=== PATIENT | female | born 1970 | race Caucasian/White ===

== ENCOUNTER 2016-09-03 13:06 | Observation (INO) ==
[2016-09-03] MEDS ORDERED: Aspirin 81 MG TAB.CHEW PO ONE (13:30)
[2016-09-03 14:02] LABS: Basophils % 0.2 %; Eosinophils % 0.1 %; Hematocrit 40.2 % (35.3-44.9); Immature Granulocytes % 0.6 % (0-4); Immature Platelets 4.1 % (1.1-6.1); Lymphocytes # 1.2 K/mcL (0.6-4.6); Lymphocytes % 8.3 %; Mean Corpuscular HGB Conc 32.3 g/dL (31.6-35.5); Mean Corpuscular Hemoglobin 29.3 pg (28.0-33.3); Mean Corpuscular Volume 90.5 fL (83.0-100.0); Mean Platelet Volume 9.8 fL (9.4-12.4); Monocytes # 0.4 K/mcL (0.0-1.3); Monocytes % 2.8 %; Neutrophils # 12.5 K/mcL (1.6-8.9); Platelet Count 328 K/mcL (140-400); Red Blood Count 4.44 M/mcL (3.82-4.97)
[2016-09-03 14:06] LABS: Prothrombin Time 10.7 Seconds (9.4-12.1)
[2016-09-03 14:15] LABS: BUN/Creatinine Ratio 17 (6-26); Blood Urea Nitrogen 12 mg/dL (7-20); Calcium 8.9 mg/dL (8.6-10.8); Carbon Dioxide 27 mEq/L (19-29); Chloride 103 mEq/L (98-109); Glucose 107 mg/dL (70-99); Osmolality,Calculated 290 (280-300); Potassium 3.9 mEq/L (3.5-4.5); Sodium 140 mEq/L (136-145); eGFR For African Americans > 60 (> 60); eGFR For Non-African Americans > 60 (> 60)
--- NOTE | 2016-09-03 15:23 | Emergency Department Note ---
Disposition Clinical Impression: Chest pain Qualifiers: Chest pain type: unspecified Qualified Code(s): R07.9 - Chest pain, unspecified Disposition: Admitted As Inpatient Condition: Good Chest Pain HPI - General Chief Complaint: ED Chest Pain Stated Complaint: chest pain Source: patient, EMS Limitations: no limitations Vital Signs Reviewed: Yes Nursing Notes Reviewed: Yes - History of Present Illness HPI Narrative: Patient is here as a [place] [facility] [place] evaluation of chest pain. Patient states that her chest pain is palpitations and pressure that radiates to left arm. Patient states that she has been recently battling bronchitis and has been treated for the last 3 weeks without resolution. Patient's symptoms seem to last for anywhere from 3-7 minutes and resolved with rest. Patient cannot tell if associated shortness of breath is from bronchitis or the chest pain. Chest pain occasionally happens at rest. Patient has no known coronary artery disease. Patient does not smoke. Patient is adopted and does not know family history. Patient is not on estrogen and does not have diabetes. Patient's EKG shows sinus rhythm with a rate of 73. CO interval 177. QRS 84. QTC 394. Patient has no significant ST elevations or depressions however she does have T-wave inversions in V1 and V2. These have not changed in progression from transfer from urgent care. Patient does not have previous EKG for comparison. Severity scale (1-10): 4 - Related Data Allergies Allergy/AdvReac Type Severity Reaction Status Date / Time codeine Allergy Vomiting Verified 09/15/15 20:45 All systems ED: reviewed and negative except as stated. Constitutional: Denies: fever, chills Cardiovascular: Reports: chest pain, palpitations, dyspnea on exertion Respiratory: Reports: cough, dyspnea Gastrointestinal: Denies: abdominal pain, nausea, vomiting Genitourinary: Denies: urgency, dysuria Musculoskeletal: Denies: back pain Integumentary: Denies: rash, abrasion Neurological: Denies: headache Psychiatric: Denies: anxiety Chest Pain PMH - Past Medical History Medical history: Reports: no medical history Surgical history: Reports: non-contributory Psychiatric history: Reports: no psych history - Social History Smoking Status: Never smoker Alcohol use: Reports: none Drug use: Reports: none Physical Exam - General Limitations: no limitations General appearance: alert, in no apparent distress - Head Head exam: atraumatic, normocephalic - Eye Eye exam: Present: normal appearance, PERRL - ENT ENT exam: normal exam, normal oropharynx - Neck Neck exam: Present: normal inspection, full ROM - Chest Chest inspection: Present: normal inspection, symmetric chest wall rise. Absent : tenderness - Respiratory Respiratory exam: Present: normal lung sounds bilaterally. Absent: respiratory distress, wheezes - Cardiovascular Cardiovascular exam: Present: regular rate, normal rhythm - Abdominal Exam Abdominal exam: Present: soft, Non-Tender - Back Exam Back exam: Present: normal inspection - Neurological Exam Neurological exam: Present: alert, oriented X3, CN II-XII intact - Psychiatric Psychiatric exam: Present: normal affect, normal mood - Skin Skin exam: Present: warm, dry Course - Reevaluation(s) Reevaluation #1: Patient's heart score is 5 secondary to highly suspicious chest pain, age, and EKG changes, risk factors, negative troponin. Using shared decision making further treatment of bronchitis versus admission to the hospital help further rule out further cardiac ischemia. Patient would like to stay for further evaluation of her heart.. Aspirin given by EMS prior to arrival. Patient not currently having chest pain. - Consultations Consultation #1: Discussed with Dr. Levi. Patient accepted for admission. Vital Signs Temperature 98.1 F 09/03/16 13:08 Pulse Rate 74 09/03/16 13:08 Respiratory Rate 16 09/03/16 13:08 Blood Pressure 147/89 09/03/16 13:08 O2 Sat by Pulse Oximetry 96 09/03/16 13:08 Temperature 98.1 F 09/03/16 13:08 Pulse Rate 104 09/03/16 16:11 Respiratory Rate 16 09/03/16 16:11 Blood Pressure 136/74 09/03/16 16:11 O2 Sat by Pulse Oximetry 94 L 09/03/16 16:11 Oxygen Delivery Oxygen Delivery Room Air Chest Pain - Lab Data Result diagrams: 09/03/16 13:52 09/03/16 13:52 Lab Results 09/03/16 09/03/16 09/03/16 Range/Units 13:52 13:52 13:52 WBC 14.2 H (4.3-11.1) K/mcL RBC 4.44 (3.82-4.97) M/mcL Hgb 13.0 (11.5-15.4) g/dL Hct 40.2 (35.3-44.9) % MCV 90.5 (83.0-100.0) fL MCH 29.3 (28.0-33.3) pg MCHC 32.3 (31.6-35.5) g/dL RDW 13.0 (11.5-14.5) % Plt Count 328 (140-400) K/mcL MPV 9.8 (9.4-12.4) fL Immature Gran % 0.6 (0-4) % Seg Neutrophils % 88.0 % Lymphocytes % 8.3 % Monocytes % 2.8 % Eosinophils % 0.1 % Basophils % 0.2 % Neutrophils # 12.5 H (1.6-8.9) K/mcL Lymphocytes # 1.2 (0.6-4.6) K/mcL Monocytes # 0.4 (0.0-1.3) K/mcL Eosinophils # 0.0 (0.0-0.6) K/mcL Basophils # 0.0 (0.0-0.2) K/mcL Immature Plt Fraction 4.1 (1.1-6.1) % PT 10.7 (9.4-12.1) Seconds INR 1.0 D-Dimer 253 (0-500) ng/mLFEU Sodium (136-145) mEq/L Potassium (3.5-4.5) mEq/L Chloride (98-109) mEq/L Carbon Dioxide (19-29) mEq/L BUN (7-20) mg/dL Creatinine (0.57-1.11) mg/dL Est GFR ( Amer) (> 60) Est GFR (Non-Af Amer) (> 60) BUN/Creatinine Ratio (6-26) Glucose (70-99) mg/dL Calculated Osmolality (280-300) Calcium (8.6-10.8) mg/dL Troponin I (0-0.03) ng/mL TSH 0.693 (0.350-4.840) mcIU/mL 09/03/16 09/03/16 Range/Units 13:52 13:52 WBC (4.3-11.1) K/mcL RBC (3.82-4.97) M/mcL Hgb (11.5-15.4) g/dL Hct (35.3-44.9) % MCV (83.0-100.0) fL MCH (28.0-33.3) pg MCHC (31.6-35.5) g/dL RDW (11.5-14.5) % Plt Count (140-400) K/mcL MPV (9.4-12.4) fL Immature Gran % (0-4) % Seg Neutrophils % % Lymphocytes % % Monocytes % % Eosinophils % % Basophils % % Neutrophils # (1.6-8.9) K/mcL Lymphocytes # (0.6-4.6) K/mcL Monocytes # (0.0-1.3) K/mcL Eosinophils # (0.0-0.6) K/mcL Basophils # (0.0-0.2) K/mcL Immature Plt Fraction (1.1-6.1) % PT (9.4-12.1) Seconds INR D-Dimer (0-500) ng/mLFEU Sodium 140 (136-145) mEq/L Potassium 3.9 (3.5-4.5) mEq/L Chloride 103 (98-109) mEq/L Carbon Dioxide 27 (19-29) mEq/L BUN 12 (7-20) mg/dL Creatinine 0.69 (0.57-1.11) mg/dL Est GFR ( Amer) > 60 (> 60) Est GFR (Non-Af Amer) > 60 (> 60) BUN/Creatinine Ratio 17 (6-26) Glucose 107 H (70-99) mg/dL Calculated Osmolality 290 (280-300) Calcium 8.9 (8.6-10.8) mg/dL Troponin I 0.00 (0-0.03) ng/mL TSH (0.350-4.840) mcIU/mL Attestation Statement - Attestation Attestation: Patient was seen with resident physician. I reviewed the history, physical, assessment and plan, and agree with the findings. I also personally evaluated this patient and had [id number] time with this patient. 46-year-old female presents to the emergency department with worsening chest pain for the last 48 hours or so. Transferred from urgent care. Patient states that she has been getting palpitations which she has had off and on for approximately one year, but now has developed chest pain as a pressure sensation left-sided chest that radiates to the neck and left arm and down her fingers. She says usually the palpitations last for 5 minutes with the pain lasting 1-2 minutes, but this morning she said the palpitations lasted close to 15 minutes and the chest pain lasting greater than 5 minutes which ultimately prompted her visit. Patient is recently been treated with antibiotics for bronchitis, but does not have any other significant medical history or cardiac history. On examination ENT is unremarkable. Lungs are clear. Heart is regular rhythm and rate. Abdomen is soft and nontender. Extremities show no abnormalities. Neurologically the patient's intact. Patient took aspirin at home, and is currently chest pain- free. Chest x-ray shows evidence to suggest bronchitis or early pneumonia. Troponin was negative. Other labs are unremarkable. EKG shows no acute changes. Because of the patient's age and obesity, in addition to the fact that she has got a good story for chest pain, we will bring her in for further evaluation and treatment. Case was discussed with the hospitalist. I agree with resident physician assessment and plan.
[2016-09-03] MEDS ORDERED: Azithromycin 250 MG TABLET PO STA (15:25)
[2016-09-03] MEDS ORDERED: Acetaminophen 325 MG TABLET PO PRN ×2 (17:56→22:00)
[2016-09-03] MEDS ORDERED: Naloxone 0.4 MG/ML INJ IVP PRN ×2 (17:56→22:00)
[2016-09-03] MEDS ORDERED: Ondansetron 4 MG/2 ML VIAL IVP PRN ×2 (17:56→22:00)
[2016-09-03] MEDS ORDERED: traMADol 50 MG TABLET PO PRN ×2 (17:58→22:00)
[2016-09-03] MEDS ORDERED: *HR* Atropine Sulfate 1 MG/10 ML SYRINGE IVP ONE (20:29)
[2016-09-03] MEDS ORDERED: 0.9 % Sodium Chloride 1,000 ML IVC ONE (20:31)
[2016-09-03] MEDS ORDERED: 0.9 % Sodium Chloride 1,000 ML IVC SCH (20:45)
--- NOTE | 2016-09-03 20:51 | Internal Med History&Physical ---
Date of Encounter: 09/03/16 Time of Encounter: 20:38 Assessment and Plan (1) Symptomatic bradycardia Current visit: Yes Status: Acute Patient reporting lightheadedness, palpitations, shortness of breath and chest pain on and off over the last week. While here, she was found to have HR in the 30s on the monitor, when examined she was found to be nauseous, pale, lightheaded, and she appeared to almost pass out. She was given 1mg atropine. 1L bolus. HR returned to normal and she reported feeling better. She was transferred to for closer monitoring. IV fluids 0.9NS at 100mL/hr VQ scan echocardiogram orthostatic VS continuous hospital monitor serial troponins Consult to cardiology (2) Chest pain Current visit: Yes Status: Acute Patient reporting mid sternal chest pain radiating down her left arm and accompanied by numbness and tingling of her left arm on and off for the last week. Intitial troponin negative. d-dimer negative at 253. EKG showed Sinus rhythm, HR 73, no ST elevations or depressions, but t-wave inversions in v1 and v2. CXR showed borderline cardiomegaly with increased lung markings at bilateral parahilar regions maybe related to bronchitis. Patient with episode of symptomatic bradycardia this evening. continuous hospital monitor serial troponins for trend echocardiogram in the morning. V/Q scan consult to cardiology. Qualifiers: Chest pain type: precordial pain Qualified Code(s): R07.2 - Precordial pain (3) Bronchitis Current visit: Yes Status: Acute Patient reports she was diagnosed with bronchitis 3 weeks ago and given a Z-pack , steroid taper and albuterol inhaler. She denies any coughing recently. Her WBC is elevated to 14.2 and her CXR showed increased lung markings at bilateral parahilar regions which may be related to bronchitis Azithromycin PO 500 given today, continue with 250mg daily PO duoneb treatments QID (4) DVT prophylaxis Current visit: Yes Status: Acute Ambulate with assistance anti-embolic stockings Lovenox 40mg SQ daily Internal Medicine - H&P: HPI Chief complaint: chest pain, shortness of breath Admitted From: Emergency Dept Plans for Post Hospital Care: Home History of present illness: Ms. Rojas is a 46 year old female with no significant medical history who presented to the ED today with complaints of lightheadedness, palpitations, shortness of breath and chest pain on and off for the last week. She reports she has had episodes of lightheadedness, palpitations and shortness of breath on and off, sometimes they happen at the same time and sometimes she just has one or the other. She states they will happen when she is in any position, can happen with activity or rest. She also reports episodes of mid sternal chest pain radiating down her left arm accompanied by left arm numbness and tingling. This is sometimes accompanied by shortness of breath. The chest pain episodes last a few minutes and go away. She also reports dull headache lasting for 30min to 5 hours on and off over the last week. She reports occasional nausea, and loose stools in the last two days. She reports chills and sweats. She reports she was diagnosed with bronchitis 3 weeks ago and was given a z-pack, steroid taper, albuterol inhaler. Evaluation in the ED included EKG which showed sinus rhythm with HR 73, no ST elevations or depressions, with T-wave inversions in V1 and V1. WBC was elevated at 14.2. Troponin was negative at 0.0, -diber was negative at 253. CXR showed borderline cardiomegaly with increased lung markings at bilateral parahilar regions, maybe related to bronchitis. On exam, patient was alert and oriented, in no distress. Heart had regular rate and rhythm and lungs were clear to auscultation bilaterally. A few minutes after I evaluated the patient, I was in the nurses station when it was noted the patient's heart rate was in the 30s on the monitor I walked back to the patient's room and patient was at the side of the bed nauseous attempting to vomit into the trash can and looking pale and eyes were rolling. We laid her back in the bed and called a rapid response. She was given 1 mg of atropine, 1L bolus, and a stat EKG was obtained. Patient's heart rate returned to normal, and she was visibly better. She was transferred to [facility] for closer monitoring. We ordered a VQ scan, echocardiogram and cardiology consult. Past Med Surg Social Fam HX - Past Medical History Medical history: no medical history Psychiatric history: no psych history - Past Surgical History Surgical History: - Social History Smoking Status: Never smoker Alcohol use: none Drug use: none - Family History Father History Unknown: Yes Adopted: Yes Mother History Unknown: Yes Adopted: Yes Internal Medicine - H&P: Meds Albuterol Sulfate [Proair Hfa] 2 puff IH Q4-6H PRN 09/03/16 [History] Ergocalciferol (VITAMIN D2) [Vitamin D2] 50,000 unit PO TH 09/03/16 [History] Allergies codeine Allergy (Verified 09/03/16 16:51) Itching All Systems PM: A 10-system review of systems was performed and is negative for pertinent findings except as documented above in the HPI. - Constitutional Constitutional: as per HPI - EENT Eyes: no change in vision, no discharge, no pain, no photophobia Ears: no ear discharge, no ear pain, no tinnitus Nose, mouth and throat: no dysphagia, no nasal discharge, no neck pain, no sore throat - Cardiovascular Cardiovascular ROS IM: as per HPI - Respiratory Respiratory: as per HPI - Gastrointestinal Gastrointestinal: as per HPI - Genitourinary Genitourinary: no change in urinary stream, no dysuria, no flank pain, no hematuria - Musculoskeletal Musculoskeletal ROS IM: no numbness, no tingling - Integumentary Integumentary IM: no rash, no unusual bruising - Neurological Neurological ROS: as per HPI - Hematologic/Lymphatic Hematologic/Lymphatic: no easy bruising - Constitutional Vitals: Temp Pulse Resp BP Pulse Ox 97.9 F 78 16 155/80 90 L 09/03/16 17:40 09/03/16 17:40 09/03/16 17:40 09/03/16 17:40 09/03/16 20:16 General appearance: Present: A&O X 3, no acute distress - Head Head exam: Present: atraumatic, normocephalic - Eye Eye exam: Present: PERRL, conjuntiva pink, sclera anicteric Pupils: Present: PERRL - Neck Neck exam general surgery: Present: supple, trachea midline. Absent: lymphadenopathy - Respiratory Respiratory exam: Present: CTAB. Absent: accessory muscle use, rales, rhonchi, wheezes - Cardiovascular Cardiovascular exam: Present: RRR, +S1, +S2. Absent: diastolic murmur, gallop, rubs, systolic murmur - GI/Abdominal GI/Abdominal exam: Present: normal bowel sounds, soft, no peritoneal signs. Absent: distended, tenderness - Extremities Exam Extremities exam: Present: warm, radial pulses palpable and symetrical. Absent : calf tenderness, cyanotic, pedal edema - Neurological Exam Neurological exam: Present: CN II-XII intact, oriented X3, no focal deficits. Absent: facial droop, speech deficit - Skin Skin exam: Present: dry, intact Internal Med - H&P Results - Labs CBC & Chem 7: 09/03/16 13:52 09/03/16 13:52 Labs: Cardiac Enzymes 09/03/16 Range/Units 19:40 Troponin I 0.00 (0-0.03) ng/mL All Lab Results (24 Hours) 09/03/16 09/03/16 09/03/16 Range/Units 13:52 13:52 13:52 WBC 14.2 H (4.3-11.1) K/mcL RBC 4.44 (3.82-4.97) M/mcL Hgb 13.0 (11.5-15.4) g/dL Hct 40.2 (35.3-44.9) % MCV 90.5 (83.0-100.0) fL MCH 29.3 (28.0-33.3) pg MCHC 32.3 (31.6-35.5) g/dL RDW 13.0 (11.5-14.5) % Plt Count 328 (140-400) K/mcL MPV 9.8 (9.4-12.4) fL Immature Gran % 0.6 (0-4) % Seg Neutrophils % 88.0 % Lymphocytes % 8.3 % Monocytes % 2.8 % Eosinophils % 0.1 % Basophils % 0.2 % Neutrophils # 12.5 H (1.6-8.9) K/mcL Lymphocytes # 1.2 (0.6-4.6) K/mcL Monocytes # 0.4 (0.0-1.3) K/mcL Eosinophils # 0.0 (0.0-0.6) K/mcL Basophils # 0.0 (0.0-0.2) K/mcL Immature Plt Fraction 4.1 (1.1-6.1) % PT 10.7 (9.4-12.1) Seconds INR 1.0 D-Dimer 253 (0-500) ng/mLFEU Sodium (136-145) mEq/L Potassium (3.5-4.5) mEq/L Chloride (98-109) mEq/L Carbon Dioxide (19-29) mEq/L BUN (7-20) mg/dL Creatinine (0.57-1.11) mg/dL Est GFR ( Amer) (> 60) Est GFR (Non-Af Amer) (> 60) BUN/Creatinine Ratio (6-26) Glucose (70-99) mg/dL POC Glucose (58-89) Calculated Osmolality (280-300) Calcium (8.6-10.8) mg/dL Troponin I (0-0.03) ng/mL TSH 0.693 (0.350-4.840) mcIU/mL 09/03/16 09/03/16 09/03/16 Range/Units 13:52 13:52 19:40 WBC (4.3-11.1) K/mcL RBC (3.82-4.97) M/mcL Hgb (11.5-15.4) g/dL Hct (35.3-44.9) % MCV (83.0-100.0) fL MCH (28.0-33.3) pg MCHC (31.6-35.5) g/dL RDW (11.5-14.5) % Plt Count (140-400) K/mcL MPV (9.4-12.4) fL Immature Gran % (0-4) % Seg Neutrophils % % Lymphocytes % % Monocytes % % Eosinophils % % Basophils % % Neutrophils # (1.6-8.9) K/mcL Lymphocytes # (0.6-4.6) K/mcL Monocytes # (0.0-1.3) K/mcL Eosinophils # (0.0-0.6) K/mcL Basophils # (0.0-0.2) K/mcL Immature Plt Fraction (1.1-6.1) % PT (9.4-12.1) Seconds INR D-Dimer (0-500) ng/mLFEU Sodium 140 (136-145) mEq/L Potassium 3.9 (3.5-4.5) mEq/L Chloride 103 (98-109) mEq/L Carbon Dioxide 27 (19-29) mEq/L BUN 12 (7-20) mg/dL Creatinine 0.69 (0.57-1.11) mg/dL Est GFR ( Amer) > 60 (> 60) Est GFR (Non-Af Amer) > 60 (> 60) BUN/Creatinine Ratio 17 (6-26) Glucose 107 H (70-99) mg/dL POC Glucose (58-89) Calculated Osmolality 290 (280-300) Calcium 8.9 (8.6-10.8) mg/dL Troponin I 0.00 0.00 (0-0.03) ng/mL TSH (0.350-4.840) mcIU/mL 09/03/16 Range/Units 20:18 WBC (4.3-11.1) K/mcL RBC (3.82-4.97) M/mcL Hgb (11.5-15.4) g/dL Hct (35.3-44.9) % MCV (83.0-100.0) fL MCH (28.0-33.3) pg MCHC (31.6-35.5) g/dL RDW (11.5-14.5) % Plt Count (140-400) K/mcL MPV (9.4-12.4) fL Immature Gran % (0-4) % Seg Neutrophils % % Lymphocytes % % Monocytes % % Eosinophils % % Basophils % % Neutrophils # (1.6-8.9) K/mcL Lymphocytes # (0.6-4.6) K/mcL Monocytes # (0.0-1.3) K/mcL Eosinophils # (0.0-0.6) K/mcL Basophils # (0.0-0.2) K/mcL Immature Plt Fraction (1.1-6.1) % PT (9.4-12.1) Seconds INR D-Dimer (0-500) ng/mLFEU Sodium (136-145) mEq/L Potassium (3.5-4.5) mEq/L Chloride (98-109) mEq/L Carbon Dioxide (19-29) mEq/L BUN (7-20) mg/dL Creatinine (0.57-1.11) mg/dL Est GFR ( Amer) (> 60) Est GFR (Non-Af Amer) (> 60) BUN/Creatinine Ratio (6-26) Glucose (70-99) mg/dL POC Glucose 86 (58-89) Calculated Osmolality (280-300) Calcium (8.6-10.8) mg/dL Troponin I (0-0.03) ng/mL TSH (0.350-4.840) mcIU/mL - Diagnostic Studies Chest x-ray Additional comments: Chest X-Ray 09/03/16 13:30 IMPRESSION: Stable borderline cardiomegaly. Increased lung markings at the bilateral parahilar regions, may be related to bronchitis. D/ / Devan Chadwick MD / Devan Chadwick MD Interpreting Provider: Devan Chadwick MD
[2016-09-03] MEDS ORDERED: Ipratropium/Albuterol Neb 3 ML IH SCH (22:00)
[2016-09-03] MEDS: 0.9 % Sodium Chloride 1,000 ML IVC SCH (22:10)
[2016-09-03] MEDS: Ipratropium/Albuterol Neb 3 ML IH SCH (22:32)
--- NOTE | 2016-09-03 23:38 | Event Note ---
Date of Encounter: 09/03/16 Time of Encounter: 23:36 Patient seen and examined with nurse practitioner. Patient presents with chest pain will check serial cardiac markers. Her dimer is normal. On arrival to the floor a rapid response was called when the patient became less responsive was found to be hypotensive and bradycardia. Prior to that she was in the bathroom had a bowel movement which she said was diarrheal. She has been feeling nauseous lightheaded since then. Then she had this episode. 1 mg of atropine was given. Symptoms improved. One L of normal saline was given during this episode. hydration. Because she has S-1 Q3 T3 pattern on the EKG VQ scan will be performed to rule out pulmonary embolism.
[2016-09-04 01:06] LABS: Basophils % 0.2 %; Eosinophils % 0.2 %; Hematocrit 35.7 % (35.3-44.9); Hemoglobin 11.5 g/dL (11.5-15.4); Immature Granulocytes % 0.5 % (0-4); Lymphocytes # 2.6 K/mcL (0.6-4.6); Lymphocytes % 19.5 %; Mean Corpuscular HGB Conc 32.2 g/dL (31.6-35.5); Mean Corpuscular Hemoglobin 29.3 pg (28.0-33.3); Mean Corpuscular Volume 91.1 fL (83.0-100.0); Mean Platelet Volume 9.7 fL (9.4-12.4); Monocytes % 7.5 %; Neutrophils # 9.5 K/mcL (1.6-8.9); Platelet Count 269 K/mcL (140-400); Red Blood Count 3.92 M/mcL (3.82-4.97); Red Cell Distribution Width 13.2 % (11.5-14.5); Segmented Neutrophils % 72.1 %
[2016-09-04 01:17] LABS: BUN/Creatinine Ratio 16 (6-26); Blood Urea Nitrogen 10 mg/dL (7-20); Carbon Dioxide 23 mEq/L (19-29); Chloride 108 mEq/L (98-109); Glucose 99 mg/dL (70-99); Osmolality,Calculated 287 (280-300); Potassium 3.8 mEq/L (3.5-4.5); Sodium 139 mEq/L (136-145); eGFR For African Americans > 60 (> 60); eGFR For Non-African Americans > 60 (> 60)
[2016-09-04] MEDS: Ipratropium/Albuterol Neb 3 ML IH SCH ×4 (04:30→23:26)
[2016-09-04] MEDS ORDERED: *HR* Enoxaparin 40 MG/0.4 ML SYRINGE SQ SCH (06:00)
[2016-09-04] MEDS: *HR* Enoxaparin 40 MG/0.4 ML SYRINGE SQ SCH (06:32)
[2016-09-04] MEDS: 0.9 % Sodium Chloride 1,000 ML IVC SCH (08:59)
[2016-09-04] MEDS ORDERED: Azithromycin 250 MG TABLET PO SCH (09:00)
--- NOTE | 2016-09-04 09:44 | Cardiology Consult Note ---
Date of Encounter: 09/04/16 Time of Encounter: 09:41 Assessment and Plan (1) Chest pain Current Visit: Yes Status: Acute Patient reporting mid sternal chest pain radiating down her left arm and accompanied by numbness and tingling of her left arm intermittently over the past week. Troponins negative x 3. D-dimer negative at 253. Echo to evaluate structure and function. Recommend exercise nuclear stress test for ischemic evaluation. No prior cardiac hx. Only risk factor is obesity. Adopted, so unsure of family hx. Further recommendations pending test results. Qualifiers: Chest pain type: precordial pain Qualified Code(s): R07.2 - Precordial pain (2) Symptomatic bradycardia Current Visit: Yes Status: Acute Patient reporting lightheadedness, palpitations, shortness of breath and chest pain intermittent over the past week. Per H&P, she was found to have HR in the 30s on telemetry and found to be nauseous, pale, lightheaded. She was given 1mg atropine. 1L bolus. HR returned to normal and she reported feeling better. She was transferred to for closer monitoring. 24 hour tele reviewed--I am unable to see tele from when she was on 3B, but since being transferred, lowest HR noted was 51, SR. AVG HR 66. TSH 0.693. Echo and exercise nuclear stress test with further recommendations to follow. Discussion w patient/family: The assessment and plan as outlined above was discussed with the patient and/or family members who expressed understanding and agreement. All questions were answered. Thank you for involving us in the care of your patient. Please call with any questions. I will discuss all the above with Dr. High and make changes as necessary. History of Present Illness Consult date: 09/04/16 Requesting physician: Cl Melendrez Consult reason: bradycardia Chief complaint: chest pain, palpitations, dyspnea History of present illness: Ms. Rojas is a 46 year old female with no significant PMH who presented to the ED yesterday with complaints of lightheadedness, palpitations, shortness of breath and chest pain intermittently for the past week. Symptoms can happen when she is in any position, can happen with activity or rest. She also reports episodes of mid sternal chest pain radiating down her left arm accompanied by left arm numbness and tingling. This is sometimes accompanied by shortness of breath. The chest pain episodes last a few minutes and subsides. She reports occasional nausea, and loose stools in the last two days. She reports chills and sweats. She reports she was diagnosed with bronchitis 3 weeks ago and was given a z-pack, steroid taper, albuterol inhaler. Reportedly became nauseous and found to have HR in the 30s per documentation with nausea, dizziness and lightheadedness, but no EKGs or strips to confirm. Current HR 60s. 24 hour tele AVG HR 66, minimum HR noted to be 51 during sleep. No prior cardiac hx or work-up. Troponins negative x 3. Past Med Surg Social Fam HX - Past Medical History Medical history: no medical history Psychiatric history: no psych history - Past Surgical History Surgical History: - Social History Smoking Status: Never smoker Alcohol use: none Drug use: none - Family History Father History Unknown: Yes Adopted: Yes Mother History Unknown: Yes Adopted: Yes Medications and Allergies Albuterol Sulfate [Proair Hfa] 2 puff IH Q4-6H PRN 09/03/16 [History] Ergocalciferol (VITAMIN D2) [Vitamin D2] 50,000 unit PO TH 09/03/16 [History] Allergies codeine Allergy (Verified 09/03/16 16:51) Itching All Systems Review: A 10-system review of systems was performed and is negative for pertinent findings except as documented above in the HPI. - Cardiovascular Cardiovascular: as per HPI, chest pain at rest, chest pain with exertion, dyspnea at rest, dyspnea on exertion, radiating jaw, neck or arm pain, lightheadedness, palpitations - Respiratory Respiratory: dyspnea - Neurological Neurological: dizziness Physical Examination Vital Signs, Last 4 Hours Temp Pulse Resp BP Pulse Ox 09/04/16 08:46 97.9 F 62 16 133/74 98 09/04/16 07:37 65 99 Vital Signs Temp Pulse Resp BP Pulse Ox 09/04/16 08:46 97.9 F 62 16 133/74 98 09/04/16 07:37 65 99 09/04/16 04:53 97.5 F L 60 16 121/80 100 09/03/16 22:37 18 99 09/03/16 21:15 97.6 F 91 18 133/84 98 09/03/16 20:21 35 16 94/64 09/03/16 20:16 90 L 09/03/16 17:40 97.9 F 78 16 155/80 96 09/03/16 17:33 75 16 138/76 95 09/03/16 16:31 16 130/82 09/03/16 16:11 104 16 136/74 94 L 09/03/16 15:40 74 16 125/84 96 09/03/16 15:00 70 16 110/60 96 09/03/16 13:08 98.1 F 74 16 147/89 96 Intake and Output 09/03/16 09/04/16 09/04/16 22:59 07:59 15:59 Intake Total 950 / 950 Output Total 300 / 300 Balance 650 / 650 Intake: IV Fluids 950 / 950 0.9 % Sodium Chloride 1, 950 / 950 000 ML @ 100 mls/hr IVC . Q10H NITIN Rx#:[id number] Oral 0 / 0 Output: Urine 300 / 300 Other: Meal Breakfast Percent of Meal Consumed 0% Weight Blood Glucose* General: Conversant, No Apparent Distress HEENT: Atraumatic, Normocephaly, Mucus Membranes Moist Neck: No JVD, Normal carotid pulses Cardiac: Reg Rate and Rhythm, Normal S1 and S2, No Murmur Lungs: Normal Breath Sounds, No Wheeze, Rales, Rhonchi Neuro: Alert and responsive, No focal deficits noted Abdomen: Soft, Non-Tender Skin: No rashes noted on visualized skin Musculoskeletal: No Chest Wall Tenderness Extremities: No Clubbing, No Cyanosis, No Edema, Normal Pulses Results 09/04/16 00:59 09/04/16 00:59 Lab Results 09/03/16 09/04/16 09/04/16 19:40 00:59 00:59 WBC 13.1 H Hgb 11.5 D Hct 35.7 Plt Count 269 Sodium Potassium Chloride Carbon Dioxide BUN Creatinine Glucose Calcium Troponin I 0.00 0.00 09/04/16 00:59 WBC Hgb Hct Plt Count Sodium 139 Potassium 3.8 Chloride 108 Carbon Dioxide 23 BUN 10 Creatinine 0.62 Glucose 99 Calcium 8.0 L Troponin I Short CBC 09/04/16 09/03/16 Range/Units 00:59 13:52 WBC 13.1 H 14.2 H (4.3-11.1) K/mcL Hgb 11.5 D 13.0 (11.5-15.4) g/dL Hct 35.7 40.2 (35.3-44.9) % Plt Count 269 328 (140-400) K/mcL Neutrophils # 9.5 H 12.5 H (1.6-8.9) K/mcL BMP 09/04/16 09/03/16 Range/Units 00:59 13:52 Sodium 139 140 (136-145) mEq/L Potassium 3.8 3.9 (3.5-4.5) mEq/L Chloride 108 103 (98-109) mEq/L Carbon Dioxide 23 27 (19-29) mEq/L BUN 10 12 (7-20) mg/dL Creatinine 0.62 0.69 (0.57-1.11) mg/dL Glucose 99 107 H (70-99) mg/dL Calcium 8.0 L 8.9 (8.6-10.8) mg/dL Cardiac Enzymes 09/04/16 09/03/16 09/03/16 Range/Units 00:59 19:40 13:52 Troponin I 0.00 0.00 0.00 (0-0.03) ng/mL Impressions Chest X-Ray 09/03/16 13:30 IMPRESSION: Stable borderline cardiomegaly. Increased lung markings at the bilateral parahilar regions, may be related to bronchitis. D/ / Devna Chadwick MD / Devan Chadwick MD Interpreting Provider: Devan Chadwick MD Active Medications Acetaminophen (Tylenol) 650 mg PO Q6HR PRN PRN Reason: Mild Pain (1-3) Stop: 03/05/17 17:57 Albuterol/Ipratropium (Duoneb) 3 ml IH [id number] NITIN PRN Reason: Protocol Stop: 03/05/17 22:01 Last Admin: 09/04/16 09:33 Dose: Not Given Azithromycin (Zithromax) 250 mg PO DAILY [facility] Stop: 09/07/16 09:01 Enoxaparin Sodium (Lovenox) 40 mg SQ 0600 [facility] PRN Reason: Protocol Stop: 03/06/17 06:01 Last Admin: 09/04/16 06:32 Dose: 40 mg Sodium Chloride (0.9 % Sodium Chloride) 1,000 mls @ 100 mls/hr IVC .Q10H NITIN Stop: 03/05/17 20:46 Last Admin: 09/04/16 08:59 Dose: 100 mls/hr Naloxone HCl (Narcan) 0.4 mg IVP Q2MIN PRN PRN Reason: Opioid Reversal Stop: 03/05/17 17:57 Ondansetron HCl (Zofran) 4 mg IVP Q8HR PRN PRN Reason: Nausea And Vomiting Stop: 03/05/17 17:57 Tramadol HCl (Ultram) 50 mg PO QID PRN PRN Reason: moderate pain Stop: 03/05/17 17:59 - Imaging and Cardiology Chest Xray: report reviewed Echo: pending - EKG Interpretation EKG results cardiology: other (24 hour tele AVG HR 66. Lowest HR 51. SR.) Consult Discharge Plan - Plan Referrals: Joseluis Todd, WASH WORKER [Primary Care Provider] -
[2016-09-04] MEDS: Azithromycin 250 MG TABLET PO SCH (11:33)
--- NOTE | 2016-09-04 12:34 | Internal Med Progress Note ---
Date of Encounter: 09/04/16 Time of Encounter: 11:20 - Assessment and plan (1) Chest pain Current Visit: Yes Status: Acute Assessment and plan: Resolved at this time Cardiology input appreciated follow up 2D echo Nuclear stress test in am maintain telemetry Qualifiers: Chest pain type: precordial pain Qualified Code(s): R07.2 - Precordial pain (2) Symptomatic bradycardia Current Visit: Yes Status: Acute Assessment and plan: Resolved at this time Required One dose of Atropine overnight Syncopal episode overnight consistent with vaso vagal etiology however given the concurrent chest pain, will do further work up to rule out any ischemic evaluation. continue tele monitoring Atropine prn (3) Bronchitis Current Visit: Yes Status: Acute Assessment and plan: Continue Azithromycin Duonebs as needed (4) DVT prophylaxis Current Visit: Yes Status: Acute Assessment and plan: Lovenox SQ - Subjective Interval history: Patient seen and examined at bedside. Resting comfortably in bed and denies any chest pain and sob at this time. However has noted history of chest discomfort down her left arm with associated numbness and tingling. No acute pain or discomfort reported at this time. Currently ambulating well around the room. - Constitutional Vitals: Temp Pulse Resp BP Pulse Ox 98.2 F 78 16 113/67 94 L 09/04/16 11:20 09/04/16 11:25 09/04/16 11:20 09/04/16 11:25 09/04/16 11:24 General appearance: Present: A&O X 3, morbidly obese, no acute distress, answers questions appropriately - Head Head exam: Present: atraumatic, normocephalic - Eye Eye exam: Present: PERRL, conjuntiva pink, sclera anicteric - Respiratory Respiratory exam: Present: CTAB. Absent: accessory muscle use, rales, rhonchi, wheezes - Cardiovascular Cardiovascular exam: Present: RRR, +S1, +S2. Absent: diastolic murmur, gallop, rubs, systolic murmur - GI/Abdominal GI/Abdominal exam: Present: normal bowel sounds, soft, no peritoneal signs. Absent: distended, tenderness - Extremities Exam Extremities exam: Present: warm, radial pulses palpable and symetrical. Absent : calf tenderness, cyanotic, pedal edema - Neurological Exam Neurological exam: Present: alert, oriented X3 - Psychiatric Psychiatric exam: Present: normal affect, normal mood Internal Medicine: Result - Labs CBC & Chem 7: 09/04/16 00:59 09/04/16 00:59 Labs: Short CBC 09/04/16 Range/Units 00:59 WBC 13.1 H (4.3-11.1) K/mcL Hgb 11.5 D (11.5-15.4) g/dL Hct 35.7 (35.3-44.9) % Plt Count 269 (140-400) K/mcL Neutrophils # 9.5 H (1.6-8.9) K/mcL BMP 09/04/16 00:59 Sodium 139 Potassium 3.8 Chloride 108 Carbon Dioxide 23 BUN 10 Creatinine 0.62 Glucose 99 Calcium 8.0 L Cardiac Enzymes 09/03/16 09/04/16 Range/Units 19:40 00:59 Troponin I 0.00 0.00 (0-0.03) ng/mL - ABG Interpretation ABG results: PT/INR, D-dimer PT 10.7 Seconds (9.4-12.1) 09/03/16 13:52 D-Dimer 253 ng/mLFEU (0-500) 09/03/16 13:52 Consult Discharge Plan - Plan Referrals: Joseluis Todd, ASSISTANT MANAGER AIRSIDE [employer]PERATIONS [Primary Care Provider] -
--- NOTE | 2016-09-04 14:11 | ECHO - Doppler Report ---
Echocardiogram Name: Julissa Rojas Date of Study: 09/04/2016 Date: 1970 Ht: 62.0 in Medical Record#: [id number] Age: 46 Wt: 224.0 lb Gender: Female BSA: 2.01 Order #: [id number] Location: [facility] Room #: 2N12 Reading Physician: Jude High DO, LUKE, CHELLY IGLESIAS Electrical Timing Device Calibrator: Alana Medrano RDCS Ordering Physician: Leanne Smiley MD Primary Physician: Joseluis Todd CNP Indications: Chest pain, Bradycardia Impressions: LVEF 60-65%. Normal LV chamber size, wall thickness and function. Normal left ventricular diastolic function. Normal right ventricular structure and function. No evidence of pulmonary hypertension. No significant valvular dysfunction. Left Ventricular Wall Motion: Rest Echo Findings All wall segments showed normal motion. Findings: Study Quality * Technically adequate exam. ECG Findings * Normal sinus rhythm. Left Ventricle * LVEF 60-65%. * Normal LV chamber size, wall thickness and function. * Normal left ventricular diastolic function. Right Ventricle * Normal right ventricular structure and function. Left Atrium * Mildly dilated left atrium. Right Atrium * Mildly dilated right atrium. Interatrial Septum * Interatrial septum not well evaluated. Aortic Valve * Aortic valve not well visualized. * No aortic regurgitation. * No aortic stenosis. Mitral Valve * Normal mitral valve structure and function. * No mitral regurgitation. * No mitral stenosis. Tricuspid Valve * Normal tricuspid valve structure and function. * Trace tricuspid regurgitation. * No evidence of pulmonary hypertension. Pulmonic Valve * Pulmonic valve not well visualized. Aorta * Normally sized aortic root. Pericardium * The pericardium appears normal. IVC * Normal IVC dimensions and inspiratory collapse. Pulmonary Artery * Normal visualized portions of the main pulmonary artery. History 4-16 a Previous Echo was performed. Measurements: BP: 121/ 80 2D Normal Values RVIDd: 2.90 cm <2.7 cm IVSd: 1.00 cm 0.6 - 1.0 cm LVIDd: 4.70 cm 3.7 - 5.6 cm LVPWd: 1.10 cm 0.6 - 1.1 cm LVIDs: 3.20 cm 1.5 - 3.6 cm AO: 2.70 cm < 4.0 cm LA: 3.40 cm 2.0 - 4.0cm %FS: 31.90 cm >25 % LVOT Diam: 1.90 cm LA volume: 47 Mitral Valve Peak E:1.03 m/sec Peak A:.67 m/sec E/A Ratio:1.5 Peak E' Lat Edwin:17.4 cm/s Peak E' Med Edwin:16.1 cm/s E/E' Lat Ratio:5.9 E/E' Med Ratio:6.4 Tricuspid Valve TV Regurg Peak Grad: 9.00mmHg TV Regurg Peak Edwin: 1.52m/sec Updated by Jude High DO, LUKE, HARRIS, CHELLY on 09/04/2016 2:06:40 PM electronically signed on 09/04/2016 2:07:07 PM with status of Final Wall Motion Queen: 1=Normal, 2=Hypokinesis, 3=Akinesis, 4=Dyskinesis, 5=Aneurysmal, 6=Hyperkinetic, X=Not Visualized (Blank)=Missing
[2016-09-05] MEDS: Ipratropium/Albuterol Neb 3 ML IH SCH ×3 (04:09→15:02)
[2016-09-05 05:23] LABS: Basophils % 0.4 %; Eosinophils # 0.1 K/mcL (0.0-0.6); Eosinophils % 1.4 %; Hemoglobin 11.6 g/dL (11.5-15.4); Immature Granulocytes % 0.7 % (0-4); Lymphocytes # 3.9 K/mcL (0.6-4.6); Lymphocytes % 39.4 %; Mean Corpuscular HGB Conc 32.2 g/dL (31.6-35.5); Mean Corpuscular Hemoglobin 29.7 pg (28.0-33.3); Mean Corpuscular Volume 92.1 fL (83.0-100.0); Mean Platelet Volume 9.9 fL (9.4-12.4); Monocytes # 0.7 K/mcL (0.0-1.3); Monocytes % 6.9 %; Neutrophils # 5.1 K/mcL (1.6-8.9); Platelet Count 274 K/mcL (140-400); Red Blood Count 3.91 M/mcL (3.82-4.97); Red Cell Distribution Width 13.4 % (11.5-14.5); Segmented Neutrophils % 51.2 %
[2016-09-05 05:36] LABS: BUN/Creatinine Ratio 12 (6-26); Blood Urea Nitrogen 8 mg/dL (7-20); Calcium 8.5 mg/dL (8.6-10.8); Carbon Dioxide 24 mEq/L (19-29); Chloride 110 mEq/L (98-109); Glucose 80 mg/dL (70-99); Osmolality,Calculated 285 (280-300); Phosphorous 3.7 mg/dL (2.3-4.7); Potassium 4.1 mEq/L (3.5-4.5); Sodium 139 mEq/L (136-145); eGFR For African Americans > 60 (> 60); eGFR For Non-African Americans > 60 (> 60)
[2016-09-05] MEDS: *HR* Enoxaparin 40 MG/0.4 ML SYRINGE SQ SCH (06:03)
[2016-09-05] MEDS: Azithromycin 250 MG TABLET PO SCH (08:38)
--- NOTE | 2016-09-05 10:02 | Internal Med Progress Note ---
Date of Encounter: 09/05/16 Time of Encounter: 10:00 - Assessment and plan (1) Chest pain Current Visit: Yes Status: Acute Assessment and plan: Patient was transferred from [facility] to [facility] with complaint of intermittent chest pain, palpitations, and pressure with radiation into her left arm that worsened with exertion for the past week. Patient was also recently treated for bronchitis. EKG in the ED revealed sinus rhythm rate of 73, noted t wave inversion in V1, V2 , and lead III with minimal depressions in V5 and V6. Troponin 0.00 x3.n D-dimer 253 normal. CXR revealed stable borderline cardiomegaly, increased lung markings at the bilateral parahilar regions related to bronchitis. Echo revealed LVEF 60-65%. Nuclear stress test completed yesterday. Continue per Cardio recommendations. Qualifiers: Chest pain type: precordial pain Qualified Code(s): R07.2 - Precordial pain (2) Symptomatic bradycardia Current Visit: Yes Status: Acute Assessment and plan: Resolved. Vitals: temp 98.1, Pulse 69, Resp 16, bp 121/70, 95% on room air Rapid response was called 09/03/16 due to patient becoming less repsonsive, hypotensive, and bradycardic following bowel movement. She had bradycardia in the 30s and was found to be nauseous, pale, lightheaded, and presyncopal. Patient received 1mg atropine and 1L normal saline bolus. Syncopal episode likely vaso-vagal etiology. Continue chest pain workup. (3) Bronchitis Current Visit: Yes Status: Acute Assessment and plan: Continue Azithromycin d2 Duonebs as needed. (4) DVT prophylaxis Current Visit: Yes Status: Acute Assessment and plan: Continue with Lovenox - Subjective Interval history: Patient reports doing well overnight, no complaints. Patient denies fevers, chills, sweats, headaches, lightheadedness, dizziness, syncopal episode, changes in vision or hearing, nausea, vomiting, chest pain, palpitations, shortness of breath, abdominal pain, changes in bowels or bladder, weakness, or loss of sensation. - Constitutional Vitals: Temp Pulse Resp BP Pulse Ox 98.1 F 69 16 121/70 95 09/05/16 07:25 09/05/16 07:25 09/05/16 07:25 09/05/16 07:25 09/05/16 07:25 General appearance: Present: A&O X 3, morbidly obese, no acute distress, answers questions appropriately - Head Head exam: Present: atraumatic, normal inspection, normocephalic - Eye Eye exam: Present: EOMI, normal appearance, PERRL - ENT ENT exam: Present: mucous membranes moist, normal exam, normal external ear exam , normal oropharynx - Neck Neck exam general surgery: Present: full ROM, normal inspection, trachea midline. Absent: lymphadenopathy, tenderness - Respiratory Respiratory exam: Present: CTAB. Absent: rales, rhonchi, wheezes - Cardiovascular Cardiovascular exam: Present: RRR, +S1, +S2. Absent: diastolic murmur, JVD, systolic murmur - GI/Abdominal GI/Abdominal exam: Present: normal bowel sounds, soft. Absent: distended, tenderness - Extremities Exam Extremities exam: Present: full ROM, normal capillary refill, normal inspection , warm, radial pulses palpable and symetrical. Absent: calf tenderness, pedal edema, tenderness - Back Exam Back exam: Present: full ROM, normal inspection. Absent: tenderness - Neurological Exam Neurological exam: Present: alert, CN II-XII intact, normal gait, oriented X3, reflexes normal, no focal deficits, strengths equal and symetr throughout. Absent: motor sensory deficit, pronater drift, facial droop, speech deficit - Psychiatric Psychiatric exam: Present: normal affect, normal mood - Skin Skin exam: Present: dry, intact, normal color, warm. Absent: diaphoretic, pallor, rash Internal Medicine: Result - Labs CBC & Chem 7: 09/05/16 05:04 09/05/16 05:04 Labs: Short CBC 09/05/16 Range/Units 05:04 WBC 9.9 (4.3-11.1) K/mcL Hgb 11.6 (11.5-15.4) g/dL Hct 36.0 (35.3-44.9) % Plt Count 274 (140-400) K/mcL Neutrophils # 5.1 (1.6-8.9) K/mcL BMP 09/05/16 05:04 Sodium 139 Potassium 4.1 Chloride 110 H Carbon Dioxide 24 BUN 8 Creatinine 0.65 Glucose 80 Calcium 8.5 L - ABG Interpretation ABG results: PT/INR, D-dimer PT 10.7 Seconds (9.4-12.1) 09/03/16 13:52 D-Dimer 253 ng/mLFEU (0-500) 09/03/16 13:52 - VTE Documentation of Mechanical Device: Graduated compression elastic hosiery Consult Discharge Plan - Plan Referrals: Joseluis Todd CNP [Primary Care Provider] - 09/09/16 9:30 am
--- NOTE | 2016-09-05 11:27 | Nuclear Medicine Stress Report ---
Exercise Nuclear Stress 2 day Name: Julissa Rojas Date of Study: 09/04/2016 Date: 1970 Ht: 62.0 in Medical Record#: [id number] Age: 46 Wt: 220.0 lb Gender: Female Order #: [id number] Location: [facility] Room: 12 Supervising Provider: Royal Jerez CNP Reading Physician: Jude High DO, FACC, CHELLY IGLESIAS Ordering Physician: Royal Jerez CNP Primary Care Physician: Joseluis Todd CNP Stress Technologist: Cassie Huerta, CARD GRINDER, CCT, CPFT Leak Patcher: Dunia Drew Indications: Chest Pain Impression: Exercise ECG is negative for ischemia. No significant changes from baseline. The exercise capacity was average. No chest pain reported. Gated EF = 73%. Perfusion imaging was negative for ischemia or infarct. Stress Test Summary: Stress Test Type: Treadmill Protocol: Nick Baseline Information: Initial Heart Rate: 71 Blood Pressure: 106/80 Stress Information: Stress Time: 6 min 00 sec Test Terminated Due to (primary): Dyspnea Maximum Blood Pressure: 176/84 Maximum Heart Rate: 155 Percent Maximum Heart Rate Achieved: 90 Double Product: [id number] METS Reached: 7 Symptoms: Shortness of breath Nuclear Summary: SPECT myocardial perfusion imaging using Tc99m Sestamibi given intravenously was performed at rest and following cardiac stress testing. The resting images were obtained following initial dose of 33.0 mCi. Following stress an additional dose of 35.8 mCi was given at peak exercise or 30 seconds post regadenoson infusion. Medication Given: Time Medication Dose Units Route Findings: Stress Note * Resting ECG demonstrated normal sinus rhythm with very slight ST changes. * No baseline arrhythmias were noted. * Exercise ECG is negative for ischemia. No significant changes from baseline. * No arrhythmias were noted during stress. * The exercise capacity was average. No chest pain reported. * Patient had no chest pain during stress. * Normal hemodynamic responses to exercise. Study Quality * Study quality is good. Gated EF % * Gated EF = 73%. Left Ventricle * The left ventricle is not dilated. LVEDV = 100 mL. NORMALS * Normal wall motion. * Normal segmental perfusion in rest. * Normal segmental perfusion in stress. TID * No evidence of transient ischemic dilatation. TID ratio = 1.04. Lung Uptake * There is no evidence of increase lung uptake. Updated by Jude High DO, LUKE, HARRIS, CHELLY on 09/05/2016 11:20:46 AM electronically signed on 09/05/2016 11:22:07 AM with status of Final
--- NOTE | 2016-09-05 12:02 | Cardiology Progress Note ---
Date of Encounter: 09/05/16 Time of Encounter: 12:00 Assessment and Plan (1) Chest pain Current Visit: Yes Status: Acute Patient reporting mid sternal chest pain radiating down her left arm and accompanied by numbness and tingling of her left arm intermittently over the past week--not associated with exertion. Troponins negative x 3. D-dimer negative at 253. Echo EF 60-65%, normal diastolic function, normal RV structure and function, no significant valvular dysfunction. No prior cardiac hx. Only risk factor is obesity. Adopted, so unsure of family hx. 2 day nuclear stress test final report pending, but was negative for ischemia or infarct. No further ischemic evaluation warranted. Cardiology is signing off. Reconsult PRN. Follow-up with PCP. Qualifiers: Chest pain type: precordial pain Qualified Code(s): R07.2 - Precordial pain (2) Symptomatic bradycardia Current Visit: Yes Status: Acute Patient reporting lightheadedness, palpitations, shortness of breath and chest pain intermittent over the past week. Per H&P, she was found to have HR in the 30s on telemetry and found to be nauseous, pale, lightheaded shortly after admission. She was given 1mg atropine. 1L bolus. HR returned to normal and she reported feeling better. She was transferred to for closer monitoring. 24 hour tele reviewed--AVG HR 74, lowest HR noted 58. SR. Bradycardia has resolved. TSH 0.693. Echo shows preserved EF 60-65%, no significant findings. 2 day nuclear stress test negative for ischemic or infarct--final report pending. Cardiology is signing off. Reconsult PRN. No PPM indicated and no further cardiac work-up warranted. Discussion w patient/family: The assessment and plan as outlined above was discussed with the patient and/or family members who expressed understanding and agreement. All questions were answered. Thank you for involving us in the care of your patient. Please call with any questions. I will discuss all the above with Dr. Jim Osman and make changes as necessary. Subjective Principal diagnosis: Chest pain, symptomatic bradycardia Interval history: Pt reports episode of left sided chest pain--achy in nature overnight at rest that lasted approximately 1 hour, resolved on its own. Echo resulted--EF 60-65% , normal diastolic function, normal RV structure and function, no significant valvular dysfunction. 24 hour tele AVG HR 74, SR, minimum HR 58. 2 day stress test final report pending, but negative for ischemia or infarct. Objective Vital Signs Temp Pulse Resp BP Pulse Ox 09/05/16 07:25 98.1 F 69 16 121/70 95 09/05/16 04:54 98.1 F 130/69 09/05/16 04:37 67 16 96 09/05/16 00:46 73 16 96 09/05/16 00:04 98.3 F 83 16 125/64 96 09/04/16 23:26 18 96 09/04/16 19:43 72 16 97 09/04/16 19:38 98.3 F 75 16 122/65 97 09/04/16 18:02 79 95 09/04/16 16:13 98 F 76 18 129/69 98 Intake and Output 09/04/16 09/05/16 09/05/16 23:59 07:59 15:59 Intake Total 780 / 780 600 / 600 Output Total 600 / 600 500 / 500 Balance 180 / 180 100 / 100 Intake: Oral 780 / 780 600 / 600 Output: Urine 600 / 600 500 / 500 Other: Meal Dinner Breakfast Percent of Meal Consumed 75% 75% Weight 116.9 kg Patient Weight 09/05/16 23:59 Weight 116.9 kg General: Conversant, No Apparent Distress HEENT: Atraumatic, Normocephaly, Mucus Membranes Moist Neck: No JVD, Normal carotid pulses Cardiac: Reg Rate and Rhythm, Normal S1 and S2, No Murmur Lungs: Normal Breath Sounds, No Wheeze, Rales, Rhonchi Neuro: Alert and responsive, No focal deficits noted Abdomen: Soft, Non-Tender Skin: No rashes noted on visualized skin Musculoskeletal: No Chest Wall Tenderness Extremities: No Clubbing, No Cyanosis, No Edema, Normal Pulses Results 09/05/16 05:04 09/05/16 05:04 Lab Results 09/05/16 09/05/16 05:04 05:04 WBC 9.9 Hgb 11.6 Hct 36.0 Plt Count 274 Sodium 139 Potassium 4.1 Chloride 110 H Carbon Dioxide 24 BUN 8 Creatinine 0.65 Glucose 80 Calcium 8.5 L Magnesium 2.0 Short CBC 09/05/16 Range/Units 05:04 WBC 9.9 (4.3-11.1) K/mcL Hgb 11.6 (11.5-15.4) g/dL Hct 36.0 (35.3-44.9) % Plt Count 274 (140-400) K/mcL Neutrophils # 5.1 (1.6-8.9) K/mcL BMP 09/05/16 Range/Units 05:04 Sodium 139 (136-145) mEq/L Potassium 4.1 (3.5-4.5) mEq/L Chloride 110 H (98-109) mEq/L Carbon Dioxide 24 (19-29) mEq/L BUN 8 (7-20) mg/dL Creatinine 0.65 (0.57-1.11) mg/dL Glucose 80 (70-99) mg/dL Calcium 8.5 L (8.6-10.8) mg/dL Active Medications Acetaminophen (Tylenol) 650 mg PO Q6HR PRN PRN Reason: Mild Pain (1-3) Stop: 03/05/17 17:57 Albuterol/Ipratropium (Duoneb) 3 ml IH [id number] NITIN PRN Reason: Protocol Stop: 03/05/17 22:01 Last Admin: 09/05/16 10:39 Dose: Not Given Azithromycin (Zithromax) 250 mg PO DAILY [facility] Stop: 09/07/16 09:01 Last Admin: 09/05/16 08:38 Dose: 250 mg Enoxaparin Sodium (Lovenox) 40 mg SQ 0600 NITIN PRN Reason: Protocol Stop: 03/06/17 06:01 Last Admin: 09/05/16 06:03 Dose: 40 mg Naloxone HCl (Narcan) 0.4 mg IVP Q2MIN PRN PRN Reason: Opioid Reversal Stop: 03/05/17 17:57 Ondansetron HCl (Zofran) 4 mg IVP Q8HR PRN PRN Reason: Nausea And Vomiting Stop: 03/05/17 17:57 Tramadol HCl (Ultram) 50 mg PO QID PRN PRN Reason: moderate pain Stop: 03/05/17 17:59 - Imaging and Cardiology Stress Test: report reviewed (negative for ischemia or infarct.) Echo: report reviewed (EF 60-65%, normal diastolic function, no significant valvular dysfunction.) - EKG Interpretation EKG results cardiology: other (24 hour tele AVG HR 74, lowest HR 58.) - VTE Documentation of Mechanical Device: Graduated compression elastic hosiery Consult Discharge Plan - Plan Referrals: Joseluis Todd CNP [Primary Care Provider] - 09/09/16 9:30 am
[2016-09-05 12:43] VITALS: BP 134/79
--- NOTE | 2016-09-05 13:58 | Discharge Summary ---
<Huang Mcclure - Last Filed: 09/05/16 14:25> Date of Encounter: 09/05/16 Time of Encounter: 13:55 - Discharge Diagnosis (1) Chest pain Priority: Primary Status: Acute Comments: Patient was transferred from [facility] to [facility] with complaint of intermittent chest pain, palpitations, and pressure with radiation into her left arm that worsened with exertion for the past week. Patient was also recently treated for bronchitis. EKG revealed sinus rhythm of 73, noted t wave inversion in V1, V2, and lead III with minimal depressions in V5 and V6. Troponin was 0.00 x3, D-dimer was 253 normal. CXR revealed stable borderline cardiomegaly, increased lung markings at the bilateral parahilar regions related to bronchitis. Echo revealed LVEF 60-65% Nuclear stress test final results revealed no ischemia or infarct. Qualifiers: Chest pain type: precordial pain Qualified Code(s): R07.2 - Precordial pain (2) Symptomatic bradycardia Priority: Secondary Status: Acute Comments: Resolved. Rapid response called 09/03/16 due to patient becoming less responsive, hypotensive, and bradycardic following bowel movement. Patient had bradycardia in the 30s and was found to be nauseous, pale, lightheaded, and presyncopal. Patient received 1mg atropin and 1L normal saline bolus. Likely vaso-vagal etiology. (3) Bronchitis Priority: Secondary Status: Acute Comments: CXR findings suggestive of bronchitis. Patient was started on azithromycin and duonebs as needed. - Discharge Medications Prescriptions: Azithromycin [Zithromax] 250 mg PO DAILY #9 tablet Home Medications: Albuterol Sulfate [Proair Hfa] 2 puff IH Q4-6H PRN 09/03/16 [History] Ergocalciferol (VITAMIN D2) [Vitamin D2] 50,000 unit PO TH 09/03/16 [History] Azithromycin [Zithromax] 250 mg PO DAILY #9 tablet 09/05/16 [Rx] Allergies/Adverse Reactions: Allergies codeine Allergy (Verified 09/03/16 16:51) Itching Procedures/tests Complete & Pending: Procedures Performed prior 72 hours Category Date Time Status NM mane perf SPECT multi [NM] Routine Exams 09/04/16 09:19 Taken ECG 12 lead ECG [ECG] Routine Y 09/04/16 09:14 Completed EV echocardiogram Routine Y 09/04/16 10:00 Completed SP exercise nuclear stress Routine Y 09/04/16 09:18 Completed Date of admission: 09/03/16 16:22 Primary care physician: Joseluis Todd CNP Consults: 09/03/16 20:31 Consult to Cardiology [CONS] Routine Comment: Consulting Provider: Cardiology Leonor Reason for Consult: 46F here with chest pain r/o ACS, had episode of symptomatic bradycardia Call Completed: No Discharging clinician: Lawrence Pop (Huang Mcclure) Anticipated date of discharge: 09/05/16 - Patient Status Disposition: Home, Self-Care Condition: Good Functional capacity at discharge: independent ambulation Overall status at discharge: patient is progressing back to baseline - Discharge Instructions Instructions: Azithromycin (By mouth), Chest Pain (DC) Follow Up With: Joseluis Todd CNP [Primary Care Provider] - 09/09/16 9:30 am Additional Instructions: Complete entire course of antibiotics as directed. Follow up with you primary care provider within 7 days regarding this hospital admission. - Diet and Activity Activity: resume usual activities as tolerated Diet: advance to your usual diet Interval History: Patient reports doing well overnight, no complaints. Patient denies fevers, chills, sweats, headaches, lightheadedness, dizziness, syncopal episodes, changes in vision or hearing, nausea, vomiting, chest pain, palpitations, shortness of breath, abdominal pain, changes in bowels or bladder, weakness, or loss of sensation. Hospital course: Ms. Rojas is a 46 year old female who was transferred from [facility] to [facility] with complaints of lightheadedness shortness of breath, palpitations, and chest pain that was worse with exertion and intermittent for the past week prior to admission. Patient was also diagnosed with bronchitis about 3 weeks prior and was prescribed a Z christine, albuterol, and steroids. EKG in revealed sinus rhythm with rate o 73, note t wave inversions in V1, V2, and lead III with minimal depressions in V5 and V6. Troponin was 0.00 x32, and d-dimer was 253 normal. CXR revealed stable cardiomegaly, increased lung markings at the bilateral parahilar regions related to bronchitis. Rapid response was called 09/03/16 due to patient becomine less responsive, hypotensive, and bradycardic following a bowel movement. Patient was noted to have wai in the 30s and was found to be nauseous, pale, lightheaded, and presyncopal. Patient received 1 mg atropine and 1L normal saline bolus. Due to history, it was likely vaso vagal etiology. Echo revealed LVEF 60-65%. Nuclear stress test revealed no ischemic or infarct changes. Patient continue to received azithromycin and duonebs for treatment of bronchitis throughout stay. Patient to be discharged to follow up with PCP in 7 days regarding hospital admission for bronchitis and chest pain. - Time Spent with Patient Total time spent providing and/or coordinating discharge services: Less than 30 minutes - Constitutional Vitals: Temp Pulse Resp BP Pulse Ox 98.5 F 83 18 134/79 97 09/05/16 12:35 09/05/16 12:35 09/05/16 12:35 09/05/16 12:35 09/05/16 12:35 General appearance: Present: A&O X 3, morbidly obese, no acute distress, obese, answers questions appropriately - Head Head exam: Present: atraumatic, normal inspection, normocephalic - Eye Eye exam: Present: EOMI, normal appearance, PERRL - ENT ENT exam: Present: mucous membranes moist, normal exam, normal external ear exam , normal oropharynx - Neck Neck exam general surgery: Present: full ROM, normal inspection, supple, trachea midline. Absent: tenderness - Respiratory Respiratory exam: Present: CTAB. Absent: chest wall tenderness, rales, rhonchi , wheezes - Cardiovascular Cardiovascular exam: Present: RRR, +S1, +S2. Absent: diastolic murmur, JVD, systolic murmur - GI/Abdominal GI/Abdominal exam: Present: normal bowel sounds, soft. Absent: distended, guarding, tenderness - Extremities Exam Extremities exam: Present: full ROM, normal capillary refill, normal inspection , warm, radial pulses palpable and symetrical. Absent: calf tenderness, pedal edema, tenderness - Back Exam Back exam: Present: full ROM, normal inspection. Absent: tenderness - Neurological Exam Neurological exam: Present: alert, CN II-XII intact, normal gait, oriented X3, reflexes normal, no focal deficits, strengths equal and symetr throughout. Absent: motor sensory deficit, pronater drift, facial droop, speech deficit - Psychiatric Psychiatric exam: Present: normal affect, normal mood - Skin Skin exam: Present: dry, intact, normal color, warm. Absent: diaphoretic, pallor, rash - VTE Documentation of Mechanical Device: Graduated compression elastic hosiery <Lawrence Pop T - Last Filed: 09/05/16 14:56> Procedures/tests Complete & Pending: Procedures Performed prior 72 hours Category Date Time Status NM mane perf SPECT multi [NM] Routine Exams 09/04/16 09:19 Taken ECG 12 lead ECG [ECG] Routine Y 09/04/16 09:14 Completed EV echocardiogram Routine Y 09/04/16 10:00 Completed SP exercise nuclear stress Routine Y 09/04/16 09:18 Completed Date of admission: 09/03/16 16:22 Primary care physician: Joseluis Todd CNP Consults: 09/03/16 20:31 Consult to Cardiology [CONS] Routine Comment: Consulting Provider: Cardiology Leonor Reason for Consult: 46F here with chest pain r/o ACS, had episode of symptomatic bradycardia Call Completed: No Hospital course: Ms. Rojas is a 46 year old female - Time Spent with Patient Total time spent providing and/or coordinating discharge services: - Constitutional Vitals: Temp Pulse Resp BP Pulse Ox 98.5 F 83 18 134/79 97 09/05/16 12:35 09/05/16 12:35 09/05/16 12:35 09/05/16 12:35 09/05/16 12:35 - Attending Attestation I examined this patient and my medical decision-making was reviewed with the RD MECHANICAL ENGINEER/PA/Advanced Practice Nurse/Resident Physician. I agree with the documented findings, disposition and treatment plan as described except to the extent set forth below. 46 year-old female with morbid obesity admitted for management of symptomatic bradycardia and chest pain. Cardiology was consulted for co-management. Bradycardia has resolved with IV fluid hydration and symptomatic management. Workup for bradycardia was unremarkable echocardiogram was within normal limit stress test was normal with no infarct, bradycardia has resolved She is stable for discharge home to follow-up with PCP. Continue Azithromycin at home for brochitis Rest of details as in residents documentation.
[2016-09-05] MEDS ORDERED: *HR* Morphine 2 MG/ML SYRINGE IVP SCH (14:15)
[2016-09-05] MEDS ORDERED: FLU VACC QS2016-17 36MOS UP/PF 0.5 ML SYRINGE IM ONE (14:19)
--- NOTE | 2016-09-05 15:20 | Electrocardiograph Report ---
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
--- NOTE | 2016-09-05 15:30 | Electrocardiograph Report ---
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
== END 2016-09-05 15:30 | disposition home or self-care (01) ==
LOC: 3BNU 13:06 → EMEROO 13:06 → SUATTDRO 16:22 → 3BNU 17:39 → 2NNU 21:04
PROVIDERS: ADMIT Internal Medicine; ATTEND Internal Medicine